=== PATIENT | female | born 1980 | race Caucasian/White ===

== ENCOUNTER 2022-05-22 09:20 | Emergency (ER) | payer OTHER ==
[2022-05-22 09:35] VITALS: PULSE 75; BMI 26.5
[2022-05-22 10:48] LABS: PH,URINE 7.5 (5.0-8.0); URINE APPEARANCE CLEAR; URINE BILIRUBIN NEGATIVE (NEGATIVE); URINE COLOR YELLOW; URINE GLUCOSE (UA) NEGATIVE (NEGATIVE); URINE KETONE NEGATIVE (NEGATIVE); URINE LEUK ESTERASE NEGATIVE (NEGATIVE); URINE NITRITE NEGATIVE (NEGATIVE); URINE PROTEIN NEGATIVE (NEGATIVE); URINE UROBILINOGEN 0.2 mg/dL (0.2-1.0)
[2022-05-22 10:52] LABS: HCG,QUALITATIVE URINE Negative
[2022-05-22 12:29] LABS: BASO % 0.6 % (0-2.0); HEMATOCRIT 36.2 % (32.4-45.2); HEMOGLOBIN 11.4 GM/dL (10.7-15.3); MCHC 31.6 g/dl (32.0-36.0); MEAN CELL VOLUME 62.9 fl (80-96); MEAN PLT VOLUME 8.2 fl (7.5-11.1); MONO % 5.7 % (3.8-10.2); NEUT % 67.7 % (42.8-82.8); PLATELET COUNT 357 10^3/uL (134-434); RBC 5.74 M/mm3 (3.60-5.2); RDW 15.9 % (11.6-15.6)
[2022-05-22 12:32] LABS: MCH 19.9 pg (25.7-33.7)
[2022-05-22 12:54] LABS: ALBUMIN 3.6 g/dl (3.4-5.0); BLOOD UREA NITROGEN 14.3 mg/dL (7-18)
[2022-05-22 12:56] LABS: CREATININE 0.6 mg/dL (0.55-1.3)
[2022-05-22 12:59] LABS: BILIRUBIN,TOTAL 0.4 mg/dL (0.2-1); TOT PROT 6.8 g/dl (6.4-8.2)
[2022-05-22 13:40] VITALS: BP 121/69; RESP 16; TEMP 98.9
== END 2022-05-22 13:40 | disposition home or self-care (01) ==
LOC: JER 09:20
DX: R42 Dizziness and giddiness (principal)
CPT/HCPCS: 0241U-QW; 36415; 71045-TC-FY; 80053; 81003; 84443; 84484; 84703; 85025; 85379; 87086; 93005; 93010; 99285-25